=== PATIENT | male | born 1965 | race Caucasian/White ===

== ENCOUNTER 2024-02-10 10:21 | Outpatient (CLI) | payer OTHER ==
[2024-02-10 12:06] LABS: #Basophils 0.01 10x3/uL (0.0-0.2); #Eosinphils 0.01 10x3/uL (0.0-0.5); #Monocytes 0.31 10x3/uL (0.0-1.1); #Neutrophils 3.93 10x3/uL (1.5-8.4); %Basophils 0.2 % (0.0-2.0); %Eosinophils 0.2 % (0.0-6.0); %Lymphocytes 15.7 % (18.0-47.0); %Monocytes 6.1 % (0.0-10.0); %Neutrophils 77.4 % (40.0-75.0); Hematocrit 42.3 % (38.8-50.0); Hemoglobin 14.6 g/dL (13.5-17.5); Mean Corpuscular HGB CONC 34.5 g/dL (32.0-36.0); Mean Corpuscular Hemoglobin 32.4 pg (27.0-33.0); Mean Corpuscular Volume 93.8 fL (81.2-95.1); Mean Platelet Volume 10.8 fL (7.4-10.4); Platelet Count 212 10x3/uL (150-450); RBC Distribution Width 12.2 % (11.5-14.5); Red Blood Cell (RBC) Count 4.51 10x6/uL (4.32-5.72); White Blood Cell (WBC) Count 5.1 10x3/uL (3.5-10.5)
[2024-02-10 12:21] LABS: Anion Gap 15 mmol/L (10-20); BUN (Urea Nitrogen) 14 mg/dL (8.4-25.7); Calc. Creatinine Clearance 0 mL/min (70-130); Calcium 9.3 mg/dL (7.8-10.44); Carbon Dioxide 24 mmol/L (22-29); Chloride 105 mmol/L (98-107); Estimated GFR 102; Glucose 99 mg/dL (70-105); Potassium 4.4 mmol/L (3.5-5.1); Sodium 140 mmol/L (136-145)
== END 2024-02-10 10:22 | disposition home or self-care (01) ==
LOC: CSHLAB 10:21
PROVIDERS: ATTEND Surgery
DX: Z01.812 Encounter for preprocedural laboratory examination (principal); K40.90 Unilateral inguinal hernia, without obstruction or gangrene, not specified as recurrent
CPT/HCPCS: 80048; 85025

== ENCOUNTER 2024-02-14 10:23 | Day surgery (SDC) | payer OTHER ==
[2024-02-10 10:44] VITALS: BMI 23.5
[2024-02-14] MEDS ORDERED: Lidocaine 1% PF 5 ML VIAL ONE (11:45)
[2024-02-14] MEDS ORDERED: PROPOFOL 20 ML ONE (11:45)
[2024-02-14] MEDS ORDERED: EPINEPHrine 1 MG/ML VIAL ONE (12:23)
[2024-02-14] MEDS ORDERED: Bupivacaine 0.25% HCL 30 ML VIAL ONE (12:23)
[2024-02-14] MEDS ORDERED: CEFAZOLIN 2 GM VIAL ONE (12:29)
[2024-02-14] MEDS ORDERED: fentaNYL 50 mcg/mL 1 mL Vial ONE ×2 (12:31→14:10)
[2024-02-14] MEDS ORDERED: Ondansetron PF 4 MG/2 ML Vial ONE (12:59)
[2024-02-14] MEDS ORDERED: Dexamethasone 4 mg/ml Vial ONE (12:59)
[2024-02-14] MEDS ORDERED: SUGAMMADEX SODIUM 200 MG/2 ML VIAL ONE (13:17)
[2024-02-14] MEDS ORDERED: Ketorolac Tromethamine 30 MG (1 mL) VIAL ONE (13:37)
[2024-02-14] MEDS ORDERED: HYDROcodone/Acetaminophen 5/325 mg Tablet ONE (14:39)
== END 2024-02-14 15:28 | disposition home or self-care (01) ==
LOC: CSHSDC 10:23
PROVIDERS: ATTEND Surgery
PROC: 0YUA4JZ Supplement Bilateral Inguinal Region with Synthetic Substitute, Percutaneous Endoscopic Approach (ICD-10-PCS; principal; 2024-02-14)
DX: K40.20 Bilateral inguinal hernia, without obstruction or gangrene, not specified as recurrent (principal)
CPT/HCPCS: C1781; J0171; J0665; J1100; J1885; J2405; J2704; J3010